=== PATIENT | female | born 1965 | race Caucasian/White ===

== ENCOUNTER → 2016-09-30 | Outpatient (CLI) | payer OTHER ==
--- NOTE | ~2016-09-30 | MY11 ---
[facility] A Service of [facility] RADIOLOGY TEXT RESULTS PATIENT: SUZETTE KIRKPATRICK LOCATION: [facility] : 65 UNIT #: [id number] AGE: [address]: Amos Gimenez MD SEX: F ORDER DR: [id number] [facility]. [place], [place] [address] [id number] MR#: [id number] Acc #: [id number] NAME: SUZETTE KIRKPATRICK : 1965 SEX: F STUDY DATE/TIME: 09/30/2016 14:37 UNIT: [facility] ROOM: STUDY DESCRIPTION: MY Mammogram Screening Dig [place] Attending Physician: Amos Gimenez Ordering Physician: Mariusz Gimenez M.D. Primary Care Physician: Kay Xiao M.D. MEDICAL IMAGING REPORT This report is preliminary unless electronic signature is present EXAM Digital screening mammogram, 09/30/2016 HISTORY 50-year-old woman, no risk elevation. Prior image-guided right breast biopsy. Annual screening. COMPARISON Mammograms date to 12/06/2007 with most recent 02/08/2015. FINDINGS Digital imaging of each breast was completed utilizing screening protocol. Review includes FDA-approved CAD device. Breast parenchyma is predominantly fatty replaced in each breast. There is mild stable parenchymal dominance projecting upper outer quadrant right breast. Image-guided biopsy marker stable in the anterior third right breast. I see no suspicious mass. There are no interval-occurring microcalcifications and no suspicious architectural deformity. IMPRESSION Negative mammogram. Annual screening recommended. Patients over the age of 40 are entered into a reminder system with target due date for the next mammogram. A result letter will also be sent to the patient. BIRADS: 1 Negative Dictated by... Hi Peng M.D. [facility] A Service [facility] RADIOLOGY TEXT RESULTS PATIENT: SUZETTE KIRKPATRICK LOCATION: [facility] : 65 UNIT #: [id number] AGE: [address]: Amos Gimenez MD SEX: F ORDER DR: THIS IS AN ELECTRONICALLY VERIFIED REPORT Hi Peng M.D. at 10/01/2016 8:01 AM ULLA/chris TD: 09/30/2016 20:21 JOB #: [id number] MEDICAL IMAGING REPORT Page 1 of 1 COPY
== END | disposition home or self-care (01) ==
LOC: CWCC 13:52
DX: Z12.31 Encounter for screening mammogram for malignant neoplasm of breast (principal)
CPT/HCPCS: G0202